=== PATIENT | male | born 1940 | race Caucasian/White ===

== ENCOUNTER 2023-12-05 08:51 | Day surgery (SDC) | payer MEDICARE, OTHER, SELFPAY ==
[2023-11-22 08:52] VITALS: BMI 24.7
[2023-12-05] VITALS (12 sets, daily range): BP systolic 108–143; BP diastolic 63–90; PULSE 70–74; RESP 12–22; TEMP 36.1–37; O2SAT 94–98; BMI 25.2
--- NOTE | 2023-12-05 | DI.RAD.S_ITS ---
PROCEDURE: XR HIP W PEL IF DONE RT 4V INDICATIONS: rt total hip anterior TECHNIQUE: Fluoroscopic guidance utilized for a right total hip arthroplasty placement COMPARISON: None. FINDINGS: Fluoroscopic images submitted for a right total hip arthroplasty placement. Please see operative note for further discussion. IMPRESSION: Fluoroscopic guidance. Dictated by: Alhaji Sofia M.D. on 12/05/2023 at 15:08 Approved by: Alhaji Sofia M.D. on 12/05/2023 at 15:08
--- NOTE | 2023-12-05 06:00 | DI.RAD.S_ITS ---
PROCEDURE: XR HIP W PEL IF DONE RT 2V INDICATIONS: GERARDO TECHNIQUE: 2 view(s) of the hip acquired. COMPARISON: [facility], CR, XR HIP W PEL IF DONE RT 4V, 12/05/2023, 12:43. FINDINGS: Bones: Patient is status post right hip arthroplasty, with hardware components in expected positions. The hip joint appears congruent. The visualized bony structures appear intact. Well-aligned, intact left total hip arthroplasty without hardware complication. Soft tissues: Overlying postoperative changes are noted. No suspicious soft tissue densities. IMPRESSION: Expected post-operative appearance of a new right hip arthroplasty. Dictated by: Alhaji Sofia M.D. on 12/05/2023 at 14:54 Approved by: Alhaji Sofia M.D. on 12/05/2023 at 14:54
[2023-12-05] MEDS: ACETAMINOPHEN 325 MG TABLET 975 MG PO (09:31)
[2023-12-05] MEDS: LACTATED RINGERS 1,000 ML 42 ML IV (09:32)
[2023-12-05] MEDS: VANCOMYCIN 1,000 MG/200 ML PIGGYBACK 200 MG IV (10:07)
--- NOTE | 2023-12-05 10:59 | PM.PREOP ---
Pre-operative Note Interval Note History & Physical reviewed/Exam performed by Physician: Yes Changes to H&P: No
--- NOTE | 2023-12-05 11:00 | P.OP_ITS ---
Operative Date/Time/Diagnoses Date of procedure: 12/05/23 Time of procedure: 11:30 Pre-op diagnosis: Severe right hip OA Post-op diagnosis: same Procedure & Clinicians Procedure: Right total hip arthroplasty anterior approach Same procedure as scheduled: Yes Indications: The patient has had progressively worsening right hip pain with radiographic changes consistent with arthritis. Non-operative management has failed and the patient has requested total hip replacement. The risks, benefits and alternatives to surgery were discussed with the patient prior to proceeding. Risks discussed included, but were not limited to, failure to relieve pain, leg length discrepancy, dislocation, stiffness, infection, nerve damage, deep venous thrombosis, pulmonary embolism, stroke, coma, heart attack, permanent paralysis and , as well as the potential need for eventual revision of the prosthetic. Surgeon: Alka Fajardo Guidance Services Coordinator: Min Gonzalez Anesthesia Type: General and Spinal Operative Notes Findings: Severe right hip OA, adequate stability, soft bone Closure Type: primary Specimen(s): none sent Prosthetic devices, grafts, tissues, transplants, or devices: Fajardo and nephew 64 mm R3, dual mobility liner, one 6.5 mm screw, polar stem size 4 standard offset with collar, 50 x 64 dual mobility OR 30 degree liner, 28 by +0 Oxinium head Estimated Blood Loss (mL): 250 Blood products transfused: none Procedure in detail: The patient was brought to the operating room. Patient was carefully positioned in the supine position. Time-out was performed and antibiotics were given. Anesthesia was induced. He was positioned in the on the table in order to allow hyperextension of the hip. The right lower extremity was prepped and draped in a standard sterile fashion. An anterior right hip incision was made 1 fingerbreadth lateral to the anterior superior iliac spine and extended distally towards the greater trochanter. Dissection was carried out through skin and subcutaneous tissues. Superficial hemostasis was achieved. The fascia over the tensor fascia cindi was defined and incised with a knife. Two Allis clamps were used to grasp the fascia. Tensor fascia cindi was retracted laterally. A gelpi retractor was placed. Dissection was carried out down along the neck. The circumflex vessels were carefully identified and cauterized with the Aqua Mantis. A PA was used during the procedure and was essential for intraoperative retraction and safe implantation of the components. There was good visualization of the femoral neck. A Cobra was placed superior to the neck and the gluteus fibers were carefully stripped from that superior aspect of the capsule. A 2nd retractor was placed along the inferior aspect of the neck. The rectus insertion along the capsule was partially released. A 3rd retractor that was then gently placed over the rim of the acetabulum under the rectus. Capsule was carefully incised and released from the intertrochanteric line circumferentially superior to the mid sagittal line and inferiorly to the mid sagittal line until the lesser trochanter was palpable. A tag stitch was placed both in the superior and inferior limb of the capsular insertion. Along the acetabulum capsule was also released up to the mid sagittal 12:00 position. A portion of the labrum was resected. A saw was used to perform an osteotomy at the level of the intertrochanteric line and the junction of the superior femoral neck leaving approximately 1 finger breath of residual inferior neck above the lesser trochanter. A 2nd cut was made along the femoral neck at the base of the head and a napkin ring of neck was removed. Corkscrew was placed in the femoral head and the head was removed without difficulty. Retractors were then repositioned around the acetabulum. Residual labrum was resected and additional osteophytes were removed. A reamer that was 4 mm below the templated size was placed by hand in the acetabulum and it was reamed to centralize the acetabulum. It was then reamed up to 2 under the templated size and fluoroscopy was brought in to confirm the position of the reaming and depth of reaming. I reamed 1 under the anticipated size. A trial cup was placed and noted that it was appropriately sized and fluoroscopy confirmed position and depth. The component was open and inserted without difficulty fluoroscopic imaging was used to confirm that the cup had been adequately seated and was well positioned. It was further stabilized with a screw. Neutral poly liner was placed. The cup was tested and noted to be stable. Attention was then directed to the femur. The femur was gently hyperextended additional capsular release was performed as needed in order to allow adequate visualization of the proximal femur with elevation of the femur. Patient was placed in a hyperextended slightly adducted position with maximum external rotation. Box osteotome was used to check for any residual neck as well as sclerotic bone along the trochanter. [place] pepper was placed in the femur. Additional broaching was performed. Canal finder was used to determine the alignment of the canal and position. Size 1 broach was placed. The canal was then appropriately broached up to the templated size as long as there was adequate stability of the broach and serial advancement of the broach without excessive impingement. Specific attention was directed at avoiding varus attempting to direct the distal aspect of the broach more anteriorly and avoiding excessive anteversion. Trial reduction showed acceptable range of motion, good stability, no posterior impingement, roman catholic of leg length and appropriate lateral shuck. I also hyperflexed the hip and checked that there was no impingement anteriorly and there was good stability with flexion, adduction and internal rotation. Marcaine and Exparel were injected. The stem was placed without difficulty. Repeat trial reduction and x-ray showed acceptable overall position, length, and no evidence of the femoral fracture. Final head was placed. Wound was meticulously irrigated with normal saline. The hip was reduced and additional Exparel and Marcaine were injected. The capsule was closed with interrupted nonabsorbable sutures. The fascia of the tensor was closed with interrupted and running Vicryl. No drain was placed. Any tensor fascia cindi muscle that appeared to be contused or injured which was a minimal amount was carefully resected. Capsule around the tensor was injected with Exparel and Marcaine. The skin was closed with barbed stitches for the subcutaneous tissue and skin. We also used surgical glue. The wound was dressed sterilely. Brief Betadine soak was also used and was meticulously irrigated with normal saline. Patient was transferred to recovery room in satisfactory condition. Complications: none Post-operative Condition: stable Disposition: same day surgery Plan for aftercare: The patient will be maintained on a standard total hip replacement protocol with weight bearing as tolerated and anterior hip precautions. The patient will receive Aspirin and sequential compression devices for DVT prophylaxis. The patient will be discharged home when safe for the home environment.
[2023-12-05] MEDS: CEFAZOLIN 2 GM/100 ML PREMIX 100 ML IV ×2 (11:49→20:12)
--- NOTE | 2023-12-05 12:09 | SUR.OPER ---
Supine on padded [place] table with bilateral legs secured in padded positioning boots and suspended in positioning spars, operative leg in traction per surgeon. Head on one pillow. Arm on non-operative side secured on padded armboard <90 degrees abduction. Arm on operative side padded and resting across chest then secured with tape over sheet. Padded perineal post in place per surgeon.
[2023-12-05] MEDS: TRANEXAMIC ACID 1,000 MG in SODIUM CHLORIDE 0.9% 100 ML 200 MG IV (12:24)
[2023-12-05] MEDS: BUPIVACAINE 0.25% (PF) 60 ML, EPINEPHrine 0.3 MG INJ (12:34)
[2023-12-05] MEDS: BUPIVACAINE LIPOSOME 266 MG/20 ML VIAL INJ (12:35)
[2023-12-05] MEDS: IBUPROFEN 400 MG TABLET PO ×3 (15:34→23:31)
[2023-12-05] MEDS: ACETAMINOPHEN 325 MG TABLET 650 MG PO ×2 (15:35→20:12)
[2023-12-05] MEDS: LACTATED RINGERS 1,000 ML 100 ML IV (15:36)
--- NOTE | 2023-12-05 16:16 | PT-IP ANOTE ---
per nurse: pt is not ready for PT eval. wants to know when pt can go home and does not want to be in the hospital for the whole day. will be in the hospital around 10-1030am to be present during PT eval.
[2023-12-05] MEDS: OXYCODONE IR 5 MG TABLET PO (18:57)
[2023-12-05] MEDS: DONEPEZIL 5 MG TABLET 10 MG PO (20:12)
[2023-12-05] MEDS: PRAVASTATIN 20 MG TABLET PO (20:12)
[2023-12-05] MEDS: DOCUSATE 100 MG CAPSULE PO (20:12)
[2023-12-05] MEDS: ASPIRIN EC 81 MG TABLET PO (20:12)
[2023-12-06] MEDS: LACTATED RINGERS 1,000 ML 100 ML IV (01:28)
[2023-12-06 03:30] VITALS: BP 101/79; PULSE 71; RESP 16; TEMP 36.6; O2SAT 93
[2023-12-06] MEDS: CEFAZOLIN 2 GM/100 ML PREMIX 100 ML IV (04:45)
[2023-12-06 06:24] LABS: Hemoglobin 10.8 g/dL (13.5-17.5)
--- NOTE | 2023-12-06 07:51 | PM.DS.1 ---
History of Present Illness History of Present Illness Date Patient Seen: 12/06/23 Time Patient Seen: 07:30 Chief complaint: OPB Narrative: Operative Date/Time/Diagnoses Date of procedure: 12/05/23 Time of procedure: 11:30 Pre-op diagnosis: Severe right hip OA Post-op diagnosis: same Procedure & Clinicians Procedure: Right total hip arthroplasty anterior approach Same procedure as scheduled: Yes Indications: The patient has had progressively worsening right hip pain with radiographic changes consistent with arthritis. Non-operative management has failed and the patient has requested total hip replacement. The risks, benefits and alternatives to surgery were discussed with the patient prior to proceeding. Risks discussed included, but were not limited to, failure to relieve pain, leg length discrepancy, dislocation, stiffness, infection, nerve damage, deep venous thrombosis, pulmonary embolism, stroke, coma, heart attack, permanent paralysis and , as well as the potential need for eventual revision of the prosthetic. Surgeon: Alka Fajardo [employer]: Min Gonzalez Anesthesia Type: General and Spinal Operative Notes Findings: Severe right hip OA, adequate stability, soft bone Closure Type: primary Specimen(s): none sent Prosthetic devices, grafts, tissues, transplants, or devices: Fajardo and nephew 64 mm R3, dual mobility liner, one 6.5 mm screw, polar stem size 4 standard offset with collar, 50 x 64 dual mobility OR 30 degree liner, 28 by +0 Oxinium head Estimated Blood Loss (mL): 250 Blood products transfused: none Discharge Providers Provider Date of admission: 12/05/23 Discharge Date: 12/06/23 Primary care physician: Levy Clements DO Consults: 11/22/23 09:35 Consult to Anesthesiology Routine Comment: Consulting Provider: Anesthesiologist Reason for consultation: Surgeon requested re: Cardiac history 12/05/23 06:00 Consult to Anesthesiology Routine Comment: Consulting Provider: Anesthesiologist Reason for consultation: Regional block for post operative pain control 12/05/23 14:58 Consult to Discharge Planning Routine Comment: Consult to Occupational Therapy Evaluate & Treat Comment: Physician Instructions: Evaluate and treat Consult to Physical Therapy Evaluate & Treat Comment: Physician Instructions: post op GERARDO protocol Discharge provider: Joss Prado PA-C Summary Hospital Course Discharge Diagnosis: Status right hip total arthroplasty anterior Hospital Course: Multimodal pain control. Physical therapy. Status at Discharge Cognitive/behavioral status at discharge: confused Functional status at discharge: uses cane/walker Overall status at discharge: patient is back to baseline Time Spent with Patient Time spent: Less than 30 minutes Exam Vital Signs (past 8 hours): - 12/06/23 03:30 Temperature 97.9 F Pulse Rate 71 Respiratory Rate 16 Blood Pressure 101/79 Pulse Oximetry 93 Oxygen Flow Rate 0 Oxygen Delivery Method Room Air Oxygen Flow Rate 0 Narrative Exam Narrative: Patient was found trying to get out of bed unassisted. He says he has no pain. Denies any numbness or tingling down the right leg. Denies any fever chills nausea or vomiting. Feels he is ready to go home. Patient is able to transition out of bed unassisted. No increased pain bilaterally to the posterior calf or thighs. No warmth noted upon palpation. Able to dorsiflex and plantarflex against resistance bilaterally at the ankles. Dressing is clean and dry no signs of discharge. 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) HLD (hyperlipidemia) Surgical History (Updated 11/22/23 @ 08:46 by Kalani Kelly RN) Hx of ventral hernia repair (~1960) History of total left hip replacement (2014) Hx of eye surgery (06/2006) History of mandibular surgery Hx of right inguinal hernia repair Hx of bilateral cataract extraction History of cardiac cath (09/01/17) History of bunionectomy of right great toe S/P AV joel ablation (11/19/18) Social History household members: spouse Smoking Status: Never smoker alcohol intake: former Discharge Assessment & Plan Assessment and Plan Assessment: Status post right hip total arthroplasty Plan of Treatment: Discharge to home. Patient has been prescribed postoperative medications and instructed in their use. Patient will take aspirin 81 mg twice a day for 6 weeks for VTE prevention. Weightbearing as tolerated with assistive devices. Initiate physical therapy within the next 5 to 10 days. Follow-up in clinic for wound check in 2 weeks. Discharge Plan Discharge Plan Patient Disposition: Home Provider Discharge Comment: DC pending PT approval Discharge orders & Medications Discharge Orders: Discharge (Order); Ordered 12/06/23 Ordered By: Joss Prado Prescriptions: New aspirin 81 mg Tablet,Delayed Release (Dr/Ec) 81 mg PO BID Qty: 90 0RF Continued enalapril maleate 5 mg Tablet 5 mg PO BID donepezil 10 mg Tablet 10 mg PO BEDTIME pravastatin 20 mg Tablet 20 mg PO BEDTIME metoprolol succinate 50 mg tablet extended release 24 hr 50 mg PO DAILY Follow up/Referrals: Levy Clements DO [Primary Care Provider] - Alka Fajardo MD [Physician] - 12/18/23 11:00 am (Follow up w/ Joselyn Lainez PA-C, at [facility] office in [place].) Diet/Activity/Treatments Diet: Diet as Tolerated Activity: Weightbearing as tolerated. Anterior hip precautions. Cold/Heat Therapy: Ice to hip as needed for pain. Skin/Wound/Dressing Care Report to your healthcare provider any signs of infection, such as:: chills, fever, night sweats, unusual drainage and unusual redness Dressing: May shower. Leave dressing in place until follow up in office. No bathing or otherwise soaking incision. Call the office if the dressing becomes saturated inside. Visit Report/Discharge Packet Instructions: DI for Hip Replacement, DI for Prescription Opioid Use Stand Alone Forms: Patient Portal/API, Surgery Discharge Discharge Data Primary Care Provider: Levy Clements Attending Provider: Alka Fajardo Quality VTE Deep Vein Thrombosis/Pulmonary Embolism Present on Admission: No
[2023-12-06 08:00] VITALS: BP 106/62; PULSE 73; RESP 16; TEMP 37; O2SAT 95
--- NOTE | 2023-12-06 09:03 | CM.DANOTE ---
Inijtial DCP Assessment Visit Note Reviewed EMR and team rounds for pt's medical status and updates. Met with pt at bedside to introduce self and role, his was not present at the time, however she will be returning this morning by 10:00am for cg training and the PT evaluation. Pt has memory loss issues, he depends on his for care coordination, transportation, and care needs, although he is quite mobile and would like to get back to working out and mowing his lawn. They live in their own home in [place]. He has been medically cleared from home d/c, his will transport him back home after he works with PT later this morning. Payor: Medicare Attending: Dr. Alka Fajardo Pt is a 83 year-old M post-op day 1 from a R-total hip arthroplasty surgery. He was found to be sitting upright in the recliner, alert, able to provide some information, however was confusional, per his baseline. He has a hx of constant and worsening pain in his R-hip, has had a cortisone injection in the past, however it didn't last very long and had very little benefit after a few days. He uses a cane and a FWW at baseline. DCP will continue to monitor for any further evolving d/c needs, however none are identified at this time. Discharge Planning/Care Management CM Discharge Assessment Start: 12/06/23 09:01 Freq: Status: Active Protocol: Document 12/06/23 09:01 DPL (Rec: 12/06/23 09:03 DPL [id number]) Discharge Planning Assessment Assigned Warehouse Handler GUZMAN Mauricio Advance Directives? Yes Advance Directives on File No History Provided By Family Member,Medical Record Has Patient been admitted in last 30 No days? Prior Living Arrangements House Household Members spouse Type of transporation used prior to Relies on Others admit Independent with ADL's No: modified independent due to cognitive deficit Is patient alert and oriented? No: alert, has difficulty, but understands self/place/time Needs Assistance With Meal Prep,Managing Medications ,Home Chores / Shopping Caregiver for Another No DME Already Rented / Owned Elevated Toilet Seat,FWW / Walker,Cane Patient/Family Preference OP PT Therapy Barriers to Discharge No Discharge Plan Home Community Services Physical Therapy Transportation Arrangement Spouse Referrals Initiated None needed Whiteboard Updated in Patient Room with Yes name and ext. # of Warehouse Handler Review Status In Process Please Provide Date Initial DC 12/06/23 Assessment Was Performed Pre-Anesthesia Assessment Start: 11/22/23 08:52 Freq: Status: Active Protocol: Document 11/22/23 08:52 CAB (Rec: 11/22/23 09:34 CAB [id number]) Pre-Anesthesia Assessment Preferred Name Alejandro Patient Information Reviewed Via Phone Assessment Assessment Completed With Spouse Comment Pt has memory loss Diagnostic Results BMP/CMP,CBC,EKG Comment Outside labs/EKG scanned Primary Care Provider Levy Clements Seen Specialist in Last 12 Months Yes Specialist Seen All Around Gear Machine Operator,Orthopedist,Other Comment Neurology Primary Language Kazakh Thermometer Maker Required No Height 190.5 cm Weight 89.811 kg Body Mass Index (BMI) 24.7 Hearing Ability Hearing Impaired Visual Assist Glasses Dentition Type Teeth, Natural Present,Teeth, Missing Barriers to Learning Memory Hx Anesthesia Reactions No Hx Family Anesthesia Reaction No Hx Malignant Hyperthermia No Hx Blood Transfusions No Anesthesia Review Requested Yes: Surgeon requested re: cardiac history Wardrobe Image Consultant No alcohol intake former Smoking Status Never smoker Substance Use Type does not use Pain Present Pain Reported Musculoskeletal Symptoms Abnormal Gait,Difficulty Walking,Joint Pain History of Falling (Recent or History of Yes ) Patient is completely paralyzed or No completely immobile Prosthesis or Orthotic Device Cane,Front Wheel Walker Mental Status Oriented to own ability Is patient on oxygen? No Does patient have DE PAZ/SOB No Hx Sleep Apnea No Currently Taking a Beta Rupert Yes: Metoprolol Anti-Coagulant Therapy No Has a All Around Gear Machine Operator Yes: Visit 01/16/[address] All Around [address]. Rabago @ [facility] Cardiac Testing Yes: Stress test 03/01/23 Hx Pacemaker/ICD Yes Pacemaker Rep Required? No: Pacer form scanned and in surgery folder Cardiac Clearance Received Yes Comment Cardiac records scanned and in surgery folder Diet Type At Home Regular Dysphagia No Gastrointestinal Symptoms None Bladder Pattern Incontinent Urinary Catheter Present No Hx Urinary Self Catheterization No Diabetes No HgbA1C 5.4 Date 09/11/23 Hx Drug Resistant Organism No Presence of External or Internal Medical Yes: Left hip, ICD Devices Marital Status Current Living Arrangements House Number of Floors (Floors) One Floor Support System Spouse Does the Patient Have Assistance After Yes Surgery Patient Discharge Plan Description Return Home Comment Pt advised possible same day surgery per surgeon Feels Safe in Current Environment Yes Been Physically Hurt or Threatened By a No Person in Current Environment Do you have thoughts of harming yourself None or others? Are you currently considering suicide? No Do you have a plan to hurt yourself or No Plan others? Do You Have Any Spiritual Beliefs That No May Affect Your HC Choices? Do You Have Any Cultural Practices That No May Affect Your HC Choices? Comment Aileen Who Can We Speak to About Patient's Care Family, friends Identifying Code for Release of Patient Declines to issue Information Health Care Proxy/Next of Kin Gretel Rubalcava () Health Care Proxy Emergency Contact Name Rafael (daughter) Emergency Contact Advance Directives? Yes Advance Directives on File No Requested Patient Bring Advanced Yes Directives DOS Power of Chancery Clerk Yes Power of Chancery Clerk Name Gretel Rubalcava () Power of Chancery Clerk PAC Instructions Assistance for 24 hours post- op,Durable medical equipment, Medications to take/avoid, Nasal antibiotic,No ETOH/ petroleum product on skin DOS, NPO,Post-op transportation,Pre -surgical wash,Sensory aids, Sturdy shoes/comfortable clothes,Do not bring valuables and remove jewelry
[2023-12-06] MEDS: IBUPROFEN 400 MG TABLET PO (09:05)
[2023-12-06] MEDS: ASPIRIN EC 81 MG TABLET PO (09:05)
[2023-12-06] MEDS: ACETAMINOPHEN 325 MG TABLET 650 MG PO (09:05)
--- NOTE | 2023-12-06 10:45 | OT.IP.EVAL ---
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) Iritis LBBB (left bundle branch block) Memory loss Skin cancer Surgical History (Last Updated 11/22/23 @ 08:46 by Kalani Kelly, RN) History of bunionectomy of right great toe History of cardiac cath (09/01/17) History of mandibular surgery History of total left hip replacement (2014) Hx of bilateral cataract extraction Hx of eye surgery (06/2006) Hx of right inguinal hernia repair Hx of ventral hernia repair (~1959) S/P AV joel ablation (11/19/18) Occupational Therapy Inpatient Evaluation/Re-Eval M1 PT/OT-IP Prior Functional Status Start: 12/06/23 11:10 Freq: NEEDED Status: Active Protocol: Document 12/06/23 11:10 [facility] (Rec: 12/06/23 11:31 [facility] [id number]) Medical Review Prior Functional Status Mobility and Gait Pt states uses a cane. Activities of Daily Living and IADL's Pt's states he is able to do his ADl and IADl needs prior without assist. Social History Household Members spouse Living Arrangements House Number of Floors (Floors) One Floor Number of Stairs To Enter/Railing? 2 steps with bilateral rails to enter from the garage. Home Environment Standard Height Toilet,Walk in Shower Home Equipment Front Wheel Walker,Four Wheel Walker,Straight Cane,Raised Toilet Seat w/Armrests,Shower Seat with Backrest,Grab Bars In Shower Additional Social History Comment Pt's to assist him at home. M2 OT-IP Current Condition Start: 12/06/23 11:10 Freq: Status: Active Protocol: Document 12/06/23 11:10 [facility] (Rec: 12/06/23 11:31 [facility] [id number]) Occupational Therapy Current Condition Current Condition Evaluation Date 12/06/23 Treatment Diagnosis S/P R GERARDO Anterior precautions Diagnosis Onset Date 12/05/23 Post Operative Precautions Anterior Hip Precautions No Hip Extension,No Hip External Rotation M3 OT- IP Subjective and Pain Start: 12/06/23 11:10 Freq: Status: Active Protocol: Document 12/06/23 11:10 [facility] (Rec: 12/06/23 11:31 [facility] [id number]) OT- Subjective Occupational Therapy Visit Type Type Initial Evaluation Visit Start Time 10:45 Visit Stop Time 11:08 Occupational Therapy Visit Comments Patient Comments Pt wanting to get dressed, pt' s in the room. Patient/Caregiver Goals To go home. OT Pain Assessment Pain When Pain Assessed At Rest Pain Present Pain Present Denied Pain M4 OT- IP ADL's Start: 12/06/23 11:10 Freq: Status: Active Protocol: Document 12/06/23 11:10 [facility] (Rec: 12/06/23 11:31 [facility] [id number]) OT [id number] Comments OT Self-Feeding Comments Not at meal time. OT ADL-Grooming Comments OT Grooming Comments Not performed. OT ADL-Oral Care Comments Oral Care Comments Not performed. OT ADL-Dressing General Eval Lower Body Dressing Ability Maximum Assistance Comments OT Dressing Comments Pt's assisting pt to get dressed. Pt has LB dressing equipment at home but just wanting to assist him. Educated to dress the RLE first and take out last. Educated best to sit down to get dressed for safety. OT ADL-Toileting Comments OT Toileting Comments Suggested pt use the urinal at night. Pt's states as times pt gets up on his own without letter her know. Pt also wears Depends. Educated pt to be mindful of his RLE positioning during ADL needs. OT ADL-Bathing Comments OT Bathing Comments Pt will need assist. Suggested to use the FWW to get into and out of the shower. Pt would benefit from a shower aid. M5 OT- IP IADL's Start: 12/06/23 11:10 Freq: Status: Active Protocol: Document 12/06/23 11:10 [facility] (Rec: 12/06/23 11:31 [facility] [id number]) OT-Instrumental Activities of Daily Living Home Safety Awareness Awareness of Need for Assistance at Home Decreased Awareness Home Safety Comments Pt's to provides assist for pt. Medication Management Medication Management Caregiver Administers Money Management Money Management Caregiver Provides Assistance Meal Preparation Meal Preparation Caregiver Provides Assist Battery Charger Tester Battery Charger Tester Caregiver Provides Assist M6 OT- IP Functional Cognition Start: 12/06/23 11:10 Freq: Status: Active Protocol: Document 12/06/23 11:10 [facility] (Rec: 12/06/23 11:31 [facility] [id number]) Cognitive Factors Limiting Selfcare Function Cognitive Ability Level of Alertness Alert Patient Orientation Name,Situation Attention Span Ability Capable of Focused Attention, Capable of Sustained Attention Ability to Follow Commands Able to Follow One Step Commands with Increased Time, Able to Follow One Step Commands with Repetition Safety Awareness Decreased Recall of Precautions,Decreased Ability to Apply Precautions, Underestimates Need for Assistance Cognitive Comments Cognitive Assessment Comments Pt is impulsive and not able to recall or follow his hip precautions. Pt will need 28/11 available assist. Pt tends to grab the FWW to stand or per nurse forgets to use the FWW at times. OT- Vision and Hearing OT- Hearing Assessment OT- Hearing Assessment WFL OT- Vision Assessment Visual Acuity Glasses For Reading Visual Attentiveness WFL Occular Pursuits WFL M7 OT- IP Mobility and Balance Start: 12/06/23 11:10 Freq: Status: Active Protocol: Document 12/06/23 11:10 [facility] (Rec: 12/06/23 11:31 [facility] [id number]) OT- Bed Mobility Assessment Supine to Sit Supine to Sit Assist Standby Assistance Sit to Supine Sit to Supine Assist Standby Assistance Scooting Scooting to Edge of Bed Standby Assistance OT-Transfer Assessment Sit to and From Stand Sit to and from Stand Standby Assistance Transfers Transfer Ability Contact Guard Assistance Technique Transfer Destination Bed Transfer Technique Stand Step Pivot Devices Transfer Assistive Devices Gait Belt,Front Wheeled Walker Comments Mobility Comments Pt able to get into and out of the bed on his own. Cues to be sure to keep his RLE from externally rotating out. Pt needing safety cues to push up from the bed and reach back with his hands prior to sitting down. Pt need vc to slow down at time his weight on on his heels and very unsteady. Suggested to turn pt's FWW outward for increased stability and pt's states to do it on her own later. OT- Balance Assessment Sitting Balance and Reactions Static Sitting Balance Ability Fair Dynamic Sitting Balance Ability Fair Standing Balance and Reactions Static Standing Balance Ability Fair Dynamic Standing Balance Ability Fair Comments Other Balance Tests/Deviations/Treatment Pt needing cues to sit : forwards as tends to lean posteriorly. Pt will benefit from hands on assist for mobility and safety as pt is very impulsive and at times unsteady on his feet. M8 OT- IP Objective Assessments Start: 12/06/23 11:10 Freq: Status: Active Protocol: Document 12/06/23 11:10 [facility] (Rec: 12/06/23 11:31 [facility] [id number]) OT Strength Comments Strength Comments WFl for mobility needs. M9 OT- IP Assessment and Plan Start: 12/06/23 11:10 Freq: Status: Active Protocol: Document 12/06/23 11:10 [facility] (Rec: 12/06/23 11:31 [facility] [id number]) OT Summary Assessment and Plan Potential Rehabilitation Potential Good Analytic Complexity at Evaluation Low Summary OT Impairments Pain,Strength,Balance, Functional Cognition, Functional Mobility,Dressing, Toileting,Bathing,Toilet Transfers,Shower Transfers, Activity Tolerance Progress Towards Goals Slow Progress due to Pain,Slow Progress due to Activity Tolerance,Slow Progress due to Cognition Assessment Summary Pt low complexity and main barrier are decreased safety awareness, impulsive and needing MAX vc for safety. At times pt needing CGA for balance as unsteady on his feet. Pt go to home with 24/7 available assist and home health. Goals Grooming Goal Independent Dressing Goal Standby Assistance Toileting Goal Minimal Assistance Bathing Goal Minimal Assistance Toilet Transfer Goal Standby Assistance Shower Transfer Goal Contact Guard Assistance Days to Meet Goals 7 Frequency of Treatment Other frequency 5x/week Treatment Plan OT Treatment Plan ADL Training,Functional Cognition Training,Functional Mobility,Patient/Family Education,Discharge Planning Discharge Recommendations OT Discharge Recommendations Home with 24/7 Assist Available,Home Health Transportation Needs at Discharge Private Vehicle
--- NOTE | 2023-12-06 11:44 | PC.NURSE ---
Ptis A&Ox2 forgetful of date. He is pleasantly confused and forgets to call for assistance despite reminding when getting out of bed, up from chair or back to bathroom. He reports pain is tolerable. His dressing to R hip is c/d/i. VSS, soft BP and enalaprit held. Patient is evaluated by PT/OT with at bedside and cleared for discharge home with her this a.m. verbalizes understanding of site care, activity limitations, medications, s/sx of infection as well as post-op appointment on 12/17 with CYDNEY wade. He is escorted with all of his belongings out to private care with son-in-law and via w/ch by RN at 1135 this a.m.
--- NOTE | 2023-12-06 17:33 | PT.IIE ---
Current Diagnoses Unilateral primary osteoarthritis, right hip (12/05/23) Surgery Performed Operation Date: 12/05/23 10:45 Actual Procedures p Total Hip Arthroplasty/Anterior Approach(Right) - Alka Fajardo MD Surgical History (Last Updated 11/22/23 @ 08:46 by Kalani Kelly, RN) History of bunionectomy of right great toe History of cardiac cath (09/01/17) History of mandibular surgery History of total left hip replacement (2014) Hx of bilateral cataract extraction Hx of eye surgery (06/2006) Hx of right inguinal hernia repair Hx of ventral hernia repair (~1959) S/P AV joel ablation (11/19/18) Medical History (Last Updated 11/22/23 @ 09:14 by Kalani Kelly, CLE[place]) Brain bleed (08/2021) Hearing loss History of Mohs micrographic surgery for skin cancer HLD (hyperlipidemia) 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 Activities of Daily Living and IADL's Pt's states he is able to do his ADl and IADl needs prior without assist. Social History Household Members spouse Living Arrangements House Number of Floors (Floors) One Floor Number of Stairs To Enter/Railing? 2 steps with bilateral rails to enter from the garage. Home Environment Standard Height Toilet,Walk in Shower Home Equipment Front Wheel Walker,Four Wheel Walker,Straight Cane,Raised Toilet Seat w/Armrests,Shower Seat with Backrest,Grab Bars In Shower Additional Social History Comment Pt's to assist him at home. M2 PT-IP Current Condition Start: 12/06/23 10:02 Freq: NEEDED Status: Discharge Protocol: Document 12/06/23 16:32 AMB (Rec: 12/06/23 17:32 AMB [id number]) Physical Therapy Current Condition Current Condition Evaluation Date 12/06/23 Treatment Diagnosis R anterior hip Onset Date 12/05/23 M3 PT-IP Subjective Start: 12/06/23 10:02 Freq: NEEDED Status: Discharge Protocol: Document 12/06/23 16:32 AMB (Rec: 12/06/23 17:32 AMB [id number]) Subjective Physical Therapy Visit Type Type Initial Evaluation Visit Start Time 10:00 Visit Stop Time 10:45 Physical Therapy Visit Comments Patient Comments Ready to get up and go home M4 PT-IP Mobility and Gait Start: 12/06/23 10:02 Freq: NEEDED Status: Discharge Protocol: Document 12/06/23 16:32 AMB (Rec: 12/06/23 17:32 AMB [id number]) PT-Bed Mobility Assessment Rolling Level of Assist Standby Assistance Supine to Sit Supine to Sit Standby Assistance Sit to Supine Sit to Supine Standby Assistance PT-Transfer Assessment Sit to and From Stand Sit to and from Stand Standby Assistance Equipment Transfer Assistive Device Bed Rail,Gait Belt,Front Wheeled Walker Transfers Transfer Destination Bed,Chair Transfer Technique Stand Step Pivot Transfer Ability Level of Assist Standby Assistance Comments Mobility Comments Cricket has generally poor safety awareness. His was in the room during treatment and she had many thoughts, concerns and questions, and her questions were answered. Cricket generally was able to mobilize with SBA, but needed frequent cueing for safety. Gait Assessment Gait Gait Assistance Required: Standby Assistance Distance (Feet) 100 Assistive Devices Assistive Device Gait Belt,Front Wheeled Walker Gait Deviations General Gait Pattern Decreased Stride Length Factors Limiting Gait Function Factors Limiting Gait Function Decreased Strength,Pain Comments Gait Comments Cricket was able to walk quite well with a FWW considering his recent surgery, needed fewer cues for gait than for transfers. Stair Climbing Assessment Evaluation Level of Assist On Stairs Contact Guard Assistance Devices Stair Climbing Assistive Devices Left Railing,Right Railing Technique/Endurance Stair Climbing Direction Ascend and Descend Stair Climbing Technique Step to Step Number of Steps Climbed 3 Query Text: Stair Climbing Set # Repetitions (reps) 2 M5 PT-IP Objective Assessments Start: 12/06/23 10:02 Freq: NEEDED Status: Discharge Protocol: Document 12/06/23 16:32 AMB (Rec: 12/06/23 17:32 AMB [id number]) Orientation Orientation/Cognition Level of Alertness Alert Gross Range of Motion Lower Extremity ROM Assessment Right Impaired M6 PT-IP Treatment Start: 12/06/23 10:02 Freq: NEEDED Status: Discharge Protocol: Document 12/06/23 16:32 AMB (Rec: 12/06/23 17:32 AMB [id number]) Physical Therapy Treatment Exercises Exercises Ankle Pumps,Gluteal Sets,Quad Sets,Heel Slides Education Education Provided Weight Bearing Status,Safety M7 PT-IP Assessment and Plan Start: 12/06/23 10:02 Freq: NEEDED Status: Discharge Protocol: Document 12/06/23 16:32 AMB (Rec: 12/06/23 17:32 AMB [id number]) PT Summary Assessment and Plan Potential Rehabilitation Potential Good Status of Condition at Evaluation Stable Summary Impairments Pain,Strength,Gait,Activity Tolerance Assessment Summary Cricket needs cueing for safety but overall did quite well with his gait and stairs. Transfers required more cueing for safety. Discussed this with the patient and his . She will be staying with him , and has a friend staying with him when she is unable to . At this time he is safe to return home when medically stable, although encouraged his to continue to give him safety cues as needed. Goals Bed Mobility Goal Standby Assistance Transfer Goal Standby Assistance Gait Goal Standby Assistance Gait Distance 200 Days to Meet Goals 1 Frequency of Treatment Frequency Of Treatment Discharge Treatment Plan Physical Therapy Treatment Plan Transfer Training,Gait Training,Therapeutic Exercise Precautions Anterior Hip Precautions No Hip Extension,No Hip External Rotation Weight Bearing Status Weight Bearing Status Weight Bear as Tolerated Recommendations To Nursing Amount of Assist Needed 1 Person Assist Discharge Recommendations PT Discharge Recommendations Home with Assistance Transportation Needs at Discharge Private Vehicle
== END 2023-12-06 11:40 | disposition home or self-care (01) ==
LOC: OR 08:55 → AC 08:55
PROVIDERS: PCP Family Medicine; Referring Provider Orthopaedic Surgery; Visit Provider Orthopaedic Surgery
PROC: (CPT 27130; principal; 2023-12-05 10:45)
DX: M16.11 Unilateral primary osteoarthritis, right hip (principal); M25.751 Osteophyte, right hip
CPT/HCPCS: 27130; 36415; 73502; 73503; 76000; 85014; 85018; 97161; 97165; 97535; C1776; C9290; J0171; J0690; J2405; J2704